=== PATIENT | female | born 1955 | race Caucasian/White ===

== ENCOUNTER 2022-08-18 16:13 | Outpatient (REF) | payer MEDICARE, OTHER, SELFPAY ==
[2022-08-18 16:37] LABS: ALT 70 U/L (14-59); Anion Gap 9.2 mmol/L (3-11); BUN 27 mg/dL (7-18); CO2 31.8 mmol/L (21.0-32.0); CREATININE 0.9 mg/dL (0.55-1.02); Calcium 10.6 mg/dL (8.5-10.1); Calculated LDL 91 mg/dL (<100); Chloride 103 mmol/L (98-107); Cholesterol 204 mg/dL (<200); Estimated GFR 69.64 (mL/min/1.73m2); Glucose 105 mg/dL (74-106); HDL Cholesterol 49 mg/dL (40-60); Potassium 4.1 mmol/L (3.5-5.1); Sodium 144 mmol/L (136-145); Triglyceride 323 mg/dL (<150)
== END 2022-08-18 16:14 | disposition home or self-care (01) ==
LOC: NCHCN 16:13
PROVIDERS: PCP Family Medicine; Visit Provider Family Medicine
DX: I10 Essential (primary) hypertension (principal); E66.8 Other obesity; E78.00 Pure hypercholesterolemia, unspecified; R79.89 Other specified abnormal findings of blood chemistry
CPT/HCPCS: 80048; 80061; 83036; 84460

== ENCOUNTER 2024-04-01 16:21 | Outpatient (REF) | payer MEDICARE, OTHER, SELFPAY ==
--- OUTSIDE RECORDS SUMMARY | 2024-04-01 16:22 | XMS_ITS | Continuity of Care Document ---
Author Organization [facility] Ambulatory Clinics Address [address] [place] [address] Care Team Providers Care Portfolio Manager Name Role Phone TANESHA WINTERS MD Primary Care Physician Encounter [facility] NBR [id number] Date(s): 08/22/23 - 08/22/23 [facility] Ambulatory Clinics [address] [place] [address] [place] Encounter Diagnosis Sacroiliac joint dysfunction(Discharge Diagnosis) - 08/22/23 Discharge Disposition: Home or Self Care Attending Physician: Sylvia Ayoub DO Referring Physician: TANESHA WINTERS MD Allergies, Adverse Reactions, Alerts No Known Allergies Functional Status 08/22/23 Family Member Travel History No recent t ravel Recent Travel History No recent travel Medications amLODIPine 10 mg oral tablet 90 tab, 0 Refill(s) Start Date: 10/13/22 Status: Ordered diclofenac 1% topical gel 100 g, APPLY 2 GRAMS TO AFFECTED AREA FOUR TIMES DAILY, 0 Refill(s) Start Date: 10/13/22 Status: Ordered DULoxetine 40 mg oral delayed release capsule 30 cap, 0 Refill(s) Start Date: 10/13/22 Status: Ordered gabapentin 300 mg oral capsule 270 EA, TAKE 1 CAPSULE BY MOUTH THREE TIMES DAILY, 0 Refill(s) Start Date: 10/13/22 Status: Ordered hydroCHLOROthiazide 25 mg oral tablet 90 tab, 0 Refill(s) Start Date: 10/13/22 Status: Ordered lidocaine 5% topical film 14 patches, 0 Refill(s) Start Date: 10/13/22 Status: Ordered meloxicam 15 mg oral tablet 90 tab, 0 Refill(s) Start Date: 10/13/22 Status: Ordered Metoprolol Succinate ER 25 mg oral tablet, extended release 90 tab, 0 Refill(s) Start Date: 10/13/22 Status: Ordered omeprazole 20 mg oral delayed release capsule 90 cap, 0 Refill(s) Start Date: 10/13/22 Status: Ordered simvastatin 40 mg oral tablet 90 tab, 0 Refill(s) Start Date: 10/13/22 Status: Ordered Problem List Condition Confirmation Course Effective Dates Status H ealth Status Informant Anxiety Confirmed Active Arthritis Confirmed Active HLD (hyperlipidemia) Confirmed Active HTN (hypertension) Confirmed Active Low back pain Confirmed Active Spondylolisthesis, lumbar region Confirmed Active Lumbosacral spondylosis with radiculopathy Confirmed Active Vital Signs Most recent to oldest [Reference Range]: 1 Temperature Temporal Artery [36-38 Deg C ] 37.1 Deg C (08/22/23 11:12 AM) Peripheral Pulse Rate [60-100 bpm] 57 bp m *LOW* (08/22/23 11:12 AM) Respiratory Rate [12-24 br/min] 18 br/mi n (08/22/23 11:12 AM) Blood Pressure [90-140/60-90 mmHg] 121/8 1mmHg (08/22/23 11:12 AM) Mean Arterial Pressure, Cuff [65-140 mmH g] 94 mmHg (08/22/23 11:12 AM) Social History Social History Type Response Tobacco Former tobacco user Tobacco Use:. Sex Patient Care team information Care Team Personnel Name: TANESHA WINTERS MD Position: No Access Member Role: Primary Care Physician Care Team Related Persons Name: JOANN HINDS Address: [address] [id number] [facility]
--- OUTSIDE RECORDS SUMMARY | 2024-04-01 16:22 | XMS_ITS | Continuity of Care Document ---
Author Organization [facility] Ambulatory Clinics Address [address] [place] [address] Care Team Providers Care Unstacker Name Role Phone SINGH BRUNSON, TANESHA Cordova Primary Care Physician Encounter [facility] NBR [id number] Date(s): 03/04/24 - 03/04/24 [facility] Ambulatory Clinics [address] [place] [address]- Encounter Diagnosis Facet arthropathy, lumbar(Discharge Diagnosis) - 03/04/24 Lumbar spondylosis(Discharge Diagnosis) - 03/04/24 Low back pain(Discharge Diagnosis) - 03/04/24 Spondylolisthesis of lumbar region(Discharge Diagnosis) - 03/04/24 Discharge Disposition: Home or Self Care Attending Physician: Sylvia Ayoub DO Allergies, Adverse Reactions, Alerts No Known Allergies Assessment and Plan Extracted from: Title:[facility] Office Visit Note - Pain Management Author:Sylvia Ayoub DO Date:03/04/24 Facet arthropathy, lumbar??M 47.816,??Lumbar spondylosis??M47.816 ?? Low back pain??M54.50 Ordered: XR Spine Lumbosacral 4+ Views, 03/04/24 12:04:00 EDT, Routine, Reason: low back pain, listhesis, evaluate for instability, flexion/extension, Transport Mode: Ambulatory, Spondylolisthesis of lumbar region Low back pain, ABN Status: Not Required ?? Spondylolisthesis of lumbar region??M43.16 Ordered: XR Spine Lumbosacral 4+ Views, 03/04/24 12:04:00 EDT, Routine, Reason: low back pain, listhesis, evaluate for instability, flexion/extension, Transport Mode: Ambulatory, Spondylolisthesis of lumbar region Low back pain, ABN Status: Not Required ? Dayan reports excellent relief of the right buttock and leg pain following a right sacroiliac joint injection performed??on 01/16/2024. ??She reports 80% relief.?? She describes some discomfort higher up in the low back??at this point in time.?? Facet loading is positive on exam.?? In 2022, she was experiencing axial left-sided low back pain and she responded well to??left diagnostic facet blocks and RFA. ??She was not experiencing any right-sided back pain at that time so the right side was not performed.?? Her current symptoms??in the lumbar spine are likely facet joint mediated.?? MRI of the lumbar spine from??September 2022??shows significant lower lumbar facet arthropathy. ?? We agreed to update the lumbar flexion/extension x-rays to rule out instability. If instability appreciated, would move forward with surgical opinion.??If no significant instability,??would??proceed with diagnostic right lumbar medial branch blocks to determine if she is a candidate for right lumbar radiofrequency ablation.?The right side is most bothersome right now so we agreed to move forward with diagnostic testing on the right side only for now.?? Once the right side is addressed, if she finds that the left-sided low back pain is progressing, can repeat the radiofrequency ablation??on the left side, which was performed about a year ago with great results. ??Would not need to repeat the diagnostic testing on the left side since she had excellent relief with a??prior RFA. ?? The flexion/extension x-rays were completed following the visit today and images were personally reviewed. ??X-rays demonstrate grade 1 spondylolisthesis of L5 on S1 as well as??L4 on L5??as seen in previous x-rays.?There is no obvious instability appreciated with flexion/extension views.? Order placed for Right L3, L4, and L5 diagnostic medial branch blocks. ? Medications amLODIPine 10 mg oral tablet 90 [...] recent to oldest [Reference Range]: 1 Temperature Oral [35.8-37.3 Deg C] 36.2 Deg C (03/04/24 11:38 AM) Peripheral Pulse Rate [60-100 bpm] 64 bp m (03/04/24 11:38 AM) Respiratory Rate [12-24 br/min] 18 br/mi n (03/04/24 11:38 AM) Blood Pressure [90-140/60-90 mmHg] 153/8 3mmHg *HI* (03/04/24 11:38 AM) Mean Arterial Pressure, Cuff [65-140 mmH g] 106 mmHg (03/04/24 11:38 AM) Social History Social History Type Response Tobacco Former tobacco user Tobacco Use:. 1 Sex Sex Representation Female (finding) 1quit 30 years ago Physician Outpatient Note * Sylvia Ayoub DO: PERFORM, MODIFY, MODIFY, MODIFY, MODIFY, MODIFY Event Display: Office Clinic Note Physician Authored Date: [id number] DAYAN HINDS :1955 Age:68 years Sex:Female Visit Date:03/04/2024 Primary Care Physician: TANESHA WINTERS MD Chief Complaint F/U on SI Joint injection Additional Information pt reports that she has had 80% improvement in her pain since having her injection. pt states my pain was 12+ before my injection History of Present Illness ?? Dayan is here for follow up to review her response to recent right SI joint injection??performed on 01/16/2024.?? Prior to the injection she was experiencing right buttock pain with radiation down the posterior right leg.?? She reports complete resolution of the leg pain following the injection.??She reports about 80% relief overall.?? She is still experiencing axial low back pain??at the levelof the??iliac crest or just slightly below the iliac crest based on area she points to on exam. ?? Pain is most bothersome with activity such as sweeping and vacuuming.?? Pain level is rated 6/10 today. ??Pain is more bothersome on the right side but she also reports some discomfort on the left side. ?? Reviewed??prior??interventions and procedures.?? She previously underwent left diagnostic facet blocks??and radiofrequency??ablation??in January 2023??with 80 to 85% relief of the left sided low back pain??at the 6-week follow-up post??RFA.?? At that time, she reported new right gluteal and leg pain, suspected to be SI joint mediated and she responded nicely to SI joint injections on the right side in April??2022 and most recently in December 2023.?? She never underwent??lumbar??facet blocks or RFA on the right side. ? Procedures: Left LMBB L3, L4, L5 - December 2022 and Left RFA L3, L4, L5 01/2023 - 80-85% relief reported at 6 week follow up visit Right SI joint injection April 2023 and December 2023 - 80% relief of right gluteal and leg pain Left SI joint injection August 2023 ?? Flex/ex xray September 2022 - negative for instability Review of Systems Constitutional:?No fevers/chills Gastrointestinal:?No bowel dysfunction Genitourinary:?No bladder dysfunction Musculoskeletal:??Positive for back pain Neurological: No new weakness, no new numbness/tingling Physical Exam Vitals & Measurements T:??36.2?C ??(Oral)?? HR:??64??(Peripheral)?? RR:??18?? BP:??153/83?? SpO2:??95%?? General: no acute distress HEENT: Facial movements symmetric Resp: Breathing comfortably, unlabored respirations Lumbar ROM: Flexion to 80??degrees, extension to??10 degrees.?? Pain worse with extension Facet loading positive right greater than left Neuro: Motor:Strength is 5 out of 5 lower extremities bilaterally Sensation:Intact to light touch lower extremities bilaterally Reflexes: 2+ bilateral patellar and right achilles, 1+ left??achilles.??Beck's negative b/l.No clonus. Gait: steady?? Assessment/Plan Facet arthropathy, lumbar??M47.816,??Lumbar spondylosis??M47.816 ?? Low back pain??M54.50 Ordered: XR Spine Lumbosacral 4+ Views, 03/04/24 12:04:00 EDT, Routine, Reason: low back pain, listhesis, evaluate for instability, flexion/extension, Transport Mode: Ambulatory, Spondylolisthesis of lumbar region Low back pain, ABN Status: Not Required ?? Spondylolisthesis of lumbar region??M43.16 Ordered: XR Spine Lumbosacral 4+ Views, 03/04/24 12:04:00 EDT, Routine, Reason: low back pain, listhesis, evaluate for instability, flexion/extension, Transport Mode: Ambulatory, Spondylolisthesis of lumbar region Low back pain, ABN Status: Not Required ? Dayan reports excellent relief of the right buttock and leg pain following a right sacroiliac joint injection performed??on 01/16/2024. ??She reports 80% relief.?? She describes some discomfort higher up in the low back??at this point in time.?? Facet loading is positive on exam.?? In 2022, she was experiencing axial left-sided low back pain and she responded well to??left diagnostic facet blocks and RFA. ??She was not experiencing any right-sided back pain at that time so the right side was not performed.?? Her current symptoms??in the lumbar spine are likely facet joint mediated.?? MRI of the lumbar spine from??September 2022??shows significant lower lumbar facet arthropathy. ?? We agreed to update the lumbar flexion/extension x-rays to rule out instability. If instability appreciated, would move forward with surgical opinion.??If no significant instability,??would??proceed with diagnostic right lumbar medial branch blocks to determine if she is a candidate for right lumbar radiofrequency ablation.?The right side is most bothersome right now so we agreed to move forward with diagnostic testing on the right side only for now.?? Once the right side is addressed, if she finds that the left-sided low back pain is progressing, can repeat the radiofrequency ablation??onthe left side, which was performed about a year ago with great results. ??Would not need to repeat the diagnostic testing on the left side since she had excellent relief with a??prior RFA. ?? The flexion/extension x-rays were completed following the visit today and images were personally reviewed. ??X-rays demonstrate grade 1 spondylolisthesis of L5 on S1 as well as??L4 on L5??as seen in previous x-rays.?There is no obvious instability appreciated with flexion/extension views.? Order placed for Right L3, L4, and L5 diagnostic medial branch blocks. Images X-rays completed on 03/04/2024 independently interpreted and agree with radiology report ? Greater than 40 minutes spent in this encounter including [id number] time as well as additional time spent on chart review, imaging review, documentation, orders/coordinating care. Problem List/Past Medical History Ongoing Anxiety Arthritis HLD (hyperlipidemia) HTN (hypertension) Low back pain Lumbosacral spondylosis with radiculopathy Spondylolisthesis, lumbar region Historical No qualifying data Medications amLODIPine 10 mg oral tablet diclofenac 1% topical gel DULoxetine 40 mg oral delayed release capsule gabapentin 300 mg oral capsule hydroCHLOROthiazide 25 mg oral tablet lidocaine 5% topical film meloxicam 15 mg oral tablet Metoprolol Succinate ER 25 mg oral tablet, extended release omeprazole 20 mg oral delayed release capsule simvastatin 40 mg oral tablet Allergies No Known Allergies No Known Medication Allergies Social History Electronic Cigarette/Vaping Electronic Cigarette Use: Unknown/not obtained. Tobacco Former tobacco user Tobacco Use:.- Comments: quit 30 years ago Electronically Signed on 03/04/2024 13:35 EDT Sylvia Ayoub DO Patient Care team information Care Team Personnel Name: SINGH BRUNSON, TANESHA Cordova Position: No Access Member Role: Primary Care Physician Care Team Related Persons Name: JOANN HINDS Insurance Providers Guarantor name: SHAMIKA Health Plan Information #: 1 Payer: [facility] Member Number: [id number] Policy Number: NA Health Plan Information #: 2 Payer: [employer] Member Number: [id number] Policy Number: NA
--- OUTSIDE RECORDS SUMMARY | 2024-04-01 16:22 | XMS_ITS | Continuity of Care Document ---
Author Organization [facility] Ambulatory Clinics Address [address] [place] [address] Care Team Providers Care Screen Writer Name Role Phone TANESHA WINTERS MD Primary Care Physician Encounter [facility] NBR [id number] Date(s): 12/10/23 - 12/10/23 [facility] Ambulatory Clinics [address] [place] [address] [place] Encounter Diagnosis Sacroiliac joint dysfunction of right side(Discharge Diagnosis) - 12/10/23 Discharge Disposition: Home Allergies, Adverse Reactions, Alerts No Known Allergies Assessment and Plan Future Appointments Medications amLODIPine 10 mg oral tablet 90 [...] Active Lumbosacral spondylosis with radiculopathy Confirmed Active Social History Social History Type Response Tobacco Former tobacco user Tobacco Use:. Sex Patient Care team information Care Team Personnel Name: TANESHA WINTERS MD Position: No Access Member Role: Primary Care Physician Care Team Related Persons Name: JOANN HINDS Address: [address] [id number] [facility]
--- OUTSIDE RECORDS SUMMARY | 2024-04-01 16:22 | XMS_ITS | Continuity of Care Document ---
Author Organization [facility] Ambulatory Clinics Address [address] [place] [address] Care Team Providers Care Asphalt Plant Operator Name Role Phone TANESHA WINTERS MD Primary Care Physician [phone] Encounter [facility] NBR [id number] Date(s): 10/17/22 - 10/17/22 [facility] Ambulatory Clinics [address] [place] [address] [place] Discharge Disposition: Home Allergies, Adverse Reactions, Alerts No Known Medication Allergies Assessment and Plan Future Appointments Medications [...]
--- OUTSIDE RECORDS SUMMARY | 2024-04-01 16:22 | XMS_ITS | Continuity of Care Document ---
Author Organization [facility] Address [address] [place] [address] Care Team Providers Care Mink Farmer Name Role Phone SINGH BRUNSON, TANESHA Cordova Primary Care Physician Encounter [facility] NBR [id number] Date(s): 03/04/24 - 03/04/24 [facility] [address] [place] [address] [place] Encounter Diagnosis Spondylolisthesis, lumbosacral region(Final) - Spinal stenosis, lumbosacral region(Final) - Unspecified inflammatory spondylopathy, lumbar region(Final) - Discharge Disposition: Home or Self Care Attending Physician: Sylvia Ayoub DO Admitting Physician: Sylvia Ayoub DO Referring Physician: Sylvia Ayoub DO Allergies, Adverse Reactions, Alerts No Known Allergies Medications amLODIPine 10 mg oral tablet 90 [...] Active Lumbosacral spondylosis with radiculopathy Confirmed Active Results Radiology Reports * Exam Date Time Procedure Performing Provider Status 03/04/24 12:16 PM XR Spine Lumbosacral 4+ Views Lynette Huizar; Auth (Verified) Notes: (XR Spine Lumbosacral 4+ Views) Reason For Exam: low back pain, listhesis, evaluate for instability XR Spine Lumbosacral 4+ Views EXAM DESCRIPTION: XR Spine Lumbosacral 4+ Views 03/04/2024 INDICATION: LOW BACK PAIN, LISTHESIS, EVALUATE FOR INSTABILITY TECHNIQUE: AP and lateral views of the lumbar spine including lateral views with voluntary flexion/extension, four views COMPARISON: 10/13/2022 IMPRESSION: No acute fracture Grade 1 spondylolisthesis at L5-S1 with grade 1 anterolisthesis at L4-5 as described previously. Lumbar lordosis is otherwise satisfactory. Mild levoscoliosis which may be positional Views with voluntary flexion/extension demonstrate no evidence of significant instability. Intervertebral disc space narrowing at L4-5 and L5-S1 suggesting degenerative disc disease as described previously. Facet arthritic changes in the lower lumbar region. SI joints appear symmetric Regional vascular calcification. JOB #: [id number] Final Signed by: Yvan Dawson MD Signed (Electronic Signature): 03/04/2024 1:18 pm Social History Social History Type Response Tobacco Former tobacco user Tobacco Use:. 1 Sex Sex Representation Female (finding) 1quit 30 years ago Patient Care team information Care Team Personnel Name: TANESHA WINTERS MD Position: No Access Member Role: Primary Care Physician Care Team Related Persons Name: JOANN HINDS Insurance Providers Guarantor name: SHAMIKA Health Plan Information #: 1 Payer: [facility] Member Number: [id number] Policy Number: NA Health Plan Information #: 2 Payer: [employer] Member Number: [id number] Policy Number: NA
--- OUTSIDE RECORDS SUMMARY | 2024-04-01 16:22 | XMS_ITS | Continuity of Care Document ---
Author Organization [facility] Address [address] [place] [address] Care Team Providers Care Tele Grout Sewer Line Repairer Name Role Phone TANESHA WINTERS MD Primary Care Physician [phone] Encounter [facility] NBR [id number] Date(s): 01/16/24 - 01/16/[address] [address]- [place] Encounter Diagnosis Sacroiliac joint dysfunction of right side(Discharge Diagnosis) - 01/16/24 Discharge Disposition: Home or Self Care Attending [...] Temperature Temporal Artery [36-38 Deg C ] 36.2 Deg C (01/16/24 1:08 PM) Peripheral Pulse Rate [60-100 bpm] 53 bp m *LOW* (01/16/24 1:08 PM) Respiratory Rate [12-24 br/min] 18 br/mi n (01/16/24 1:08 PM) Blood Pressure [90-140/60-90 mmHg] 122/6 9mmHg (01/16/24 1:08 PM) Mean Arterial Pressure, Cuff [65-140 mmH g] 87 mmHg (01/16/24 1:08 PM) Weight 79.38 kg (01/16/24 1:08 PM) Weight Measured (lbs) 175.003 lb (01/16/24 1:08 PM) Weight Dosing 79.380 kg (01/16/24 1:08 PM) [place] Body Weight Calculated 47.8 kg (01/16/24 1:08 PM) Height 154.94 cm (01/16/24 1:08 PM) Height/Length Measured (inches) 61 inch (01/16/24 1:08 PM) BSA Measured 1.85 m2 (01/16/24 1:08 PM) Body Mass Index 33.07 kg/m2 (01/16/24 1:08 PM) Social History Social History Type Response Tobacco Former tobacco user Tobacco Use:. 1 Sex 1quit 30 years ago Patient Care team information Care Team Personnel Name: TANESHA WINTERS MD Position: No Access Member Role: Primary Care Physician Care Team Related Persons Name: JOANN HINDS Address: [address] [phone] [facility]
--- OUTSIDE RECORDS SUMMARY | 2024-04-01 16:22 | XMS_ITS | Continuity of Care Document ---
Author Organization [facility] Ambulatory Clinics Address [address] [place] [address] Care Team Providers Care Film Booker Name Role Phone TANESHA WINTERS MD Primary Care Physician Encounter [facility] FIN NBR [id number] Date(s): 03/22/23 - 03/22/23 [facility] Ambulatory Clinics [address] [place] [address] [place] Encounter Diagnosis Lumbar spondylosis(Discharge Diagnosis) - 03/22/23 Facet arthropathy, lumbar(Discharge Diagnosis) - 03/22/23 Sacroiliac joint dysfunction of right side(Discharge Diagnosis) - 03/22/23 Chronic low back pain(Discharge Diagnosis) - 03/22/23 Other chronic pain(Discharge Diagnosis) - 03/22/23 Discharge Disposition: Home or Self Care Attending [...] Temperature Temporal Artery [36-38 Deg C ] 36.4 Deg C (03/22/23 4:37 PM) Peripheral Pulse Rate [60-100 bpm] 67 bp m (03/22/23 4:37 PM) Blood Pressure [90-140/60-90 mmHg] 122/7 0mmHg (03/22/23 4:37 PM) Social History Social History Type Response Tobacco Former tobacco user Tobacco Use:. Sex Physician Outpatient Note * Sylvia Ayoub, DO: PERFORM, MODIFY Event Display: Office Clinic Note Physician Authored Date: [id number] DAYAN HINDS :1955 Age:67 years Sex:Female Visit Date:03/22/2023 Primary Care Physician: TANESHA WINTERS MD Chief Complaint Lower back- Injection follow up Additional Information Injecton is helping her back. Now having more sciatica pain on the right side. 85% relief from the injection. No medication changes. History of Present Illness ?? 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 she has a history of intermittent sciatica on the left side and she has not noticed any left legpain recently however, she has a new problem of right pain, denies new injury she has been much more active since the RFA but does not recall a specific event/injury started to notice right sided pain a few weeks ago does not appear to be triggered by any particular activity radiates from right buttock to posterior thigh and calf no pain to foot no numbness/tingling Review of Systems Constitutional:?No fevers/chills Gastrointestinal:?No bowel dysfunction Genitourinary:?No bladder dysfunction Musculoskeletal:??Positive for right buttock and leg pain Neurological: No new weakness, no new numbness/tingling Physical Exam Vitals & Measurements T:??36.4?C ??(Temporal Artery)?? HR:??67??(Peripheral)?? BP:??122/70?? SpO2:??97%?? Gen: no acute distress HEENT: Facial movements symmetric Resp: Breathing comfortably, unlabored respirations Lumbar ROM: Fairly normal range of motion of the lumbar spine in flexion and extension without significant discomfort Neuro: Motor:Strength is 5 out of 5 in the lower extremities bilaterally HF, KE, AD, EHL, PF Sensation:Intact to light touch in the lower extremities bilaterally Reflexes: 2+ bilateral patellar, achilles.?? Provocative tests: back pain with SLR on right Hips: no groin pain with internal or external rotation SI joints: Durga's finger test positive on right, DEEDEE maneuver and Gaenslen's maneuver positive,thigh thrust and SI compression are positive on right Gait: steady, clears toes Assessment/Plan Chronic low back pain??M54.50 ?? Facet arthropathy, lumbar??M47.816,??Lumbar spondylosis??M47.816 ?? Other chronic pain??G89.29 ?? Sacroiliac joint dysfunction of right side??M53.3 Ordered: Surgical Procedure Booking Request LTTL, 03/22/23 15:38:00 EDT, sacroiliac joint dysfunct, Sacroiliac joint dysfunction of right side, Outpatient, right SI joint injection, Primary Procedure, 45, Special equipment needed (include C-Arm requests)?, Local, 34, Sylvia Ayoub, DO, Right Sacroi... ? Dayan reports an excellent response to a recent left??lumbar radiofrequency ablation.?? There is significant improvement in function. 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 She reports 80-85% relief overall. ??She may experience a mild residual soreness in the low back??at times but overall her symptoms are very manageable and tolerable at this time. She is happy with the relief from the lumbar RFA. ?? She reports a new area of pain which started few weeks ago and is present on the right side. ??Previously she was experiencing some left sided leg pain??but this has not occurred recently. ??The new right-sided symptoms radiate from the right??gluteal region at the level of the SI joint and radiates??to the posterior thigh.?? MRI reveals some very mild foraminal narrowing at L5- S1??which could potentially explain her symptoms although the narrowing does appear slightly worse on the left side compared to the right. ??On exam today, there are several findings suggestive of SI joint mediated pain. ??We reviewed the option to trial a right SI joint injection. ??Risks and??potential benefits were reviewed and she would like to proceed.?? If an SI joint injection is ineffective, we could consider a right L5 transforaminal LUPE. ?? She will return for a right SI joint injection. ? Images MRI lumbar spine reviewed ? 30+ minutes spent in this encounter including [id number] time, chart review, imaging review, documentation and coordination of care. Problem List/Past Medical History Ongoing Anxiety [...] Unknown/not obtained. Tobacco Former tobacco user Tobacco Use:. Electronically Signed on 03/22/23 05:32 PM Sylvia Ayoub, Patient Care team information Care Team Personnel Name: SINGH BRUNSON, TANESHA Cordova Position: No Access Member Role: Primary Care Physician Care Team Related Persons Name: JOANN HINDS Address: [address] [id number] [facility]
--- OUTSIDE RECORDS SUMMARY | 2024-04-01 16:22 | XMS_ITS | Continuity of Care Document ---
Author Organization [facility] Ambulatory Clinics Address [address] [place] [address] Care Team Providers Care Facilities Locator Name Role Phone TANESHA WINTERS MD Primary Care Physician [phone] Encounter [facility] FIN NBR [id number] Date(s): 06/22/23 - 06/22/23 [facility] Ambulatory Clinics [address] [place] [address] [place] Encounter Diagnosis Sacroiliac joint dysfunction(Discharge Diagnosis) - 06/22/23 Discharge Disposition: Home or Self Care Attending [...] Temperature Temporal Artery [36-38 Deg C ] 35.9 Deg C *LOW* (06/22/23 2:54 PM) Peripheral Pulse Rate [60-100 bpm] 57 bp m *LOW* (06/22/23 2:54 PM) Blood Pressure [90-140/60-90 mmHg] 151/8 9mmHg *HI* (06/22/23 2:54 PM) Mean Arterial Pressure, Cuff [70-110 mmH g] 110 mmHg (06/22/23 2:54 PM) Social History Social History Type Response Tobacco Former tobacco user Tobacco Use:. Sex Physician Outpatient Note * Sylvia Ayoub, DO: PERFORM, MODIFY, MODIFY, MODIFY, MODIFY Event Display: Office Clinic Note Physician Authored Date: [id number] MAGDA HINDS :1955 Age:67 years Sex:Female Visit Date:06/22/2023 Primary Care Physician: TANESHA WINTERS MD Chief Complaint Injection follow up Additional Information Starting feeling relief right away. 90% relief from the injection. No medication changes. History of Present Illness ?? Magda is here for follow-up of her right SI joint injection which was performed on 05/16/2023.?? She had??significant??improvement, at least 90% relief. ??She reports increased??mobility. 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 She is able to walkfor longer distances without pain.?? She states that around Joseph time, she started to notice similar symptoms on the left side.?? The pain is slightly better over the past 2 days??but the symptoms overall feel very similar to what she was experiencing on the right side prior to the SI joint injection.?? The pain is mainly in the left gluteal region with radiation to the posterior thigh. ??Nodistal leg pain. ??No associated numbness or tingling.?? She occasionally uses Tylenol. Review of Systems Constitutional:?No fevers/chills Musculoskeletal:??Positive for back pain/left gluteal pain Neurological: No new weakness, no new numbness/tingling Physical Exam Vitals & Measurements T:??35.9?C ??(Temporal Artery)?? HR:??57??(Peripheral)?? BP:??151/89?? SpO2:??97%?? General: no acute distress HEENT: Facial movements symmetric Resp: Breathing comfortably, unlabored respirations Neuro: Motor:Strength is 5 out of 5 in the lower extremities bilaterally Sensation:Intact to light touch in the lower extremities bilaterally SI joints:??+ DEEDEE, Gaenslen's maneuver, SI joint compression and thigh thrust on left side Gait: normal Assessment/Plan Sacroiliac joint dysfunction??M53.3 ?? She reports excellent relief with recent right SI joint injection performed on 05/16/23. She is experiencing similar pain on the left side.?? Exam today reveals several findings suggestive of SI joint mediated??pain on the left side.?? She would like to trial a left SI joint injection. Order has been entered, pending insurance authorization. ?? She will follow up for left SI joint injection. ? 20 minutes spent in this encounter including face to face time, chart review, documentation and coordination of care. Problem [...] tobacco user Tobacco Use:. Electronically Signed on 06/22/23 04:06 PM Sylvia Ayoub DO Patient Care team information Care Team Personnel Name: SINGH BRUNSON, TANESHA Cordova Position: No Access Member Role: Primary Care Physician Care Team Related Persons Name: JOANN HINDS Address: [address] [id number] [facility]
--- OUTSIDE RECORDS SUMMARY | 2024-04-01 16:22 | XMS_ITS | Continuity of Care Document ---
Author Organization [facility] Ambulatory Clinics Address [address] [place] [address] Care Team Providers Care Manager Strategy Name Role Phone TANESHA WINTERS MD Primary Care Physician Encounter [facility] FIN NBR [id number] Date(s): 11/22/22 - 11/22/22 [facility] Ambulatory Clinics [address] [place] [address] us Discharge Disposition: Home or Self Care Attending Physician: Sylvia Ayoub DO Allergies, Adverse Reactions, Alerts No Known Medication Allergies Medications amLODIPine 10 mg oral tablet [...] Note * Sylvia Ayoub, DO: PERFORM, MODIFY, MODIFY Event Display: Office Clinic Note Physician Authored Date: [id number] HINDSMAGDA :1955 Age:66 years Sex:Female Visit Date:11/22/2022 Primary Care Physician: TANESHA WINTERS MD PROCEDURE NOTE LEFT??DIAGNOSTIC LUMBAR MEDIAL BRANCH BLOCKS L3, L4, L5 Diagnosis: lumbar facet arthropathy, lumbar spondylosis ?? Chief complaint: low back pain ?? Updated H&P: No significant??change from prior office visit.?? Injection was initially ordered to be performed on both sides??and she was consented for bilateral injection today. ??However, priorto the timeout process, she stated that her symptoms are really most bothersome on the left side and her pain is minimal on the right side. ??She stated that she only wanted the left side addressed today.?? We made the change to the consent form that we would only be performing a left-sided procedure today, which both the patient and myself initialed. ?? The patient was interviewed and the medical record??was??reviewed. ??There were no medical, pharmacologic, radiographic or other structural contraindications to attempting fluoroscopically guided local anesthetic??lumbar medial branch blocks. ??Risks and??potential??side effects??were discussed. ??We also discussed the??potential benefit(s)??of the procedure, and their voiced concerns??were??addressed. ??After they were completely informed about the procedure, the printed consent form was signed. ?? The patient??was placed in the prone position on the fluoroscopy table. ?A standard time-out procedure was performed.??The skin entry points for approaching the anatomic target points of the segmental medial branches of??LEFT L3, L4, L5 medial branches were identified with fluoroscopy and marked. The skin at the target site area was??thoroughly prepared with??Chlorhexidine. ??The skin was then??draped. ??Next, a??25 gauge??3.5??spinal needle was placed under fluoroscopic guidance down on tothe target point??(the articular pillar)??for each respective segmental medial branch. Aspiration revealed no blood or clear fluid. After negative aspiration, 0.5??ml??of preservative-free 0.25% bupiv acaine??was injected??at each level.? The patient's??vital signs were stable throughout the procedure. There were no complications. ?? Patient was was instructed to keep careful note of how the usual pain was modified by these injections. ??Specifically, the patient was asked to keep a pain diary for the next 4 hours using a numericpain scale of 0-10.?? Post procedure instruction was given and having met discharge criteria, patient was discharged from the [facility]. ?? Based on the medial branches blocked today, if the patient has adequate relief and we are able to proceed to radiofrequency ablation, the treatment should result in the denervation of the??LEFT L4-5 and L5-S1 facet joints.??We would expect to denervate a total of??2 facets during the radiofrequencyablation. ?? Pre-procedure pain score: 7/10 Post -procedure pain score: 0/10 ? COMMENTS:??We will contact patient tomorrow to review post-procedure pain scores for hours 0-4. Electronically Signed on 11/22/22 06:04 PM Sylvia Ayoub, Patient Care team information Care Team Personnel Name: SINGH BRUNSON, TANESHA Cordova Position: No Access Member Role: Primary Care Physician
--- OUTSIDE RECORDS SUMMARY | 2024-04-01 16:22 | XMS_ITS | Continuity of Care Document ---
Author Organization [facility] Ambulatory Clinics Address [address] [place] [address] Care Team Providers Care In Process Inspector Name Role Phone TANESHA WINTERS MD Primary Care Physician Encounter [facility] FIN NBR [id number] Date(s): 01/31/23 - 01/31/23 [facility] Ambulatory Clinics [address] [place] [address] [place] Discharge Disposition: Home or Self Care [...] Most recent to oldest [Reference Range]: 1 2 3 Peripheral Pulse Rate [60-100 bpm] 56 bpm *LOW* (01/31/23 9:54 AM) 54 bpm *LOW* (01/31/23 9:45 AM) 56 bpm *LOW* (01/31/23 9:42 AM) Respiratory Rate [12-24 br/min] 20 br/min (01/31/23 8:30 AM) Blood Pressure [90-140/60-90 mmHg] 111/87mmHg (01/31/23 9:54 AM) 133/90mmHg (01/31/23 9:45 AM) 136/81mmHg (01/31/23 9:42 AM) Blood Pressure Location Left arm (01/31/23 9:42 AM) Left arm (01/31/23 9:39 AM) Blood Pressure Method Automatic (01/31/23 9:42 AM) Automatic (01/31/23 9:39 AM) Weight 81.65 kg (01/31/23 8:30 AM) Weight Measured (lbs) 180.007 lb (01/31/23 8:30 AM) Height 154.94 cm (01/31/23 8:30 AM) Height/Length Measured (inches) 61 inch (01/31/23 8:30 AM) BSA Measured 1.87 m2 (01/31/23 8:30 AM) Body Mass Index 34.01 kg/m2 (01/31/23 8:30 AM) Social History Social History Type Response Tobacco Former tobacco user Tobacco Use:. Sex Discharge instructions * Event Display: Discharge Instructions History and physical note * Event Display: History and Physical Update Patient Care team information Care Team Personnel Name: TANESHA WINTERS MD Position: No Access Member Role: Primary Care Physician Care Team Related Persons Name: JOANN HINDS Address: [address]
--- OUTSIDE RECORDS SUMMARY | 2024-04-01 16:22 | XMS_ITS | Continuity of Care Document ---
Author Organization [facility] Ambulatory Clinics Address [address] [place] [address] Care Team Providers Care Semiconductors Wafer Breaker Name Role Phone TANESHA WINTERS MD Primary Care Physician Encounter [facility] [facility] NBR [id number] Date(s): 10/13/22 - 10/13/22 [facility] Ambulatory Clinics [address] [place] [address] [place] Encounter Diagnosis Spondylolisthesis, lumbar region(Discharge Diagnosis) - 10/13/22 Low back pain(Discharge Diagnosis) - 10/13/22 Lumbosacral spondylosis with radiculopathy(Discharge Diagnosis) - 10/13/22 Discharge Disposition: Home or Self Care Attending Physician: TANESHA WINTERS MD Referring Physician: TANESHA WINTERS MD Allergies, Adverse Reactions, Alerts No Known Medication Allergies Functional Status 10/13/22 Other exposure to Infectious Disease Non e Medications amLODIPine 10 mg oral tablet 90 [...] recent to oldest [Reference Range]: 1 Temperature Tympanic [36.6-37.9 Deg C] 3 6.4 Deg C *LOW* (10/13/22 2:19 PM) Peripheral Pulse Rate [60-100 bpm] 75 bp m (10/13/22 2:19 PM) Respiratory Rate [12-24 br/min] 18 br/mi n (10/13/22 2:19 PM) Blood Pressure [90-140/60-90 mmHg] 142/7 6mmHg *HI* (10/13/22 2:19 PM) Weight 84.1 kg (10/13/22 2:19 PM) Weight Measured (lbs) 185.409 lb (10/13/22 2:19 PM) [place] Body Weight Calculated 47.8 kg (10/13/22 2:19 PM) Height 154.94 cm (10/13/22 2:19 PM) Height/Length Measured (inches) 61 inch (10/13/22 2:19 PM) BSA Measured 1.9 m2 (10/13/22 2:19 PM) Body Mass Index 35.03 kg/m2 (10/13/22 2:19 PM) Social History Social History Type Response Tobacco Former tobacco user Tobacco Use:. Sex Physician Outpatient Note * SUDHIR Pike: PERFORM Event Display: Office Clinic Note Physician Authored Date: [id number] MAGDA HINDS :1955 Age:66 years Sex:Female Visit Date:10/13/2022 Primary Care Physician: TANESHA WINTERS MD Chief Complaint Lower Back Pain Additional Information Reports pain located lower back and describes pain to radiate down left leg, patient describes a numbness sensation in left foot. completed PT at [facility] with Greyson Govea. History of Present Illness The patient presents to the spine center accompanied by her for evaluation of her low back and left leg pain.?? The patient reports that she has been struggling with this pain for over 2 years.?? She is experiencing pain in her low back??that is constant but??worse with bending, twisting??and walking. ??She is also experiencing intermittent but severe pain affecting the left leg. ??She reports that randomly she will have a severe pain that extends from the left low back into the left buttock and down the posterior lateral left leg and into her foot. ??She was reports that this happensshe has significant numbness of her left foot.?? She states that the pain is so severe and her leg feels so weak when this happens she cannot walk. ??This will last for up to 1 week??and be unbearable.?? The pain will then subside but her low back pain will persist. ??The patient has been trying tofigure out what??activities or movements cause this nerve pain down the left leg which she has not been able to figure out any aggravating activities.?? Her left leg has given out on her and she has f kacy??when the pain was severe.?? The patient has been prescribed a short course of oral steroids with no relief.?? She is taking gabapentin as well and thinks that may help a little bit with her pain.?? She has applied Voltaren gel with no relief. ??She does use lidocaine patches on her low back may provide some temporary relief.?? The patient also has an inversion table and that does seem to help a little bit. ??She has done physical therapy with no improvement. ??She has also had chiropractic treatments with some minimal improvement initially. ?? Review of Systems Relevant ROS discussed in HPI Physical Exam Vitals & Measurements T:??36.4?C ??(Tympanic)?? HR:??75??(Peripheral)?? RR:??18?? BP:??142/76?? SpO2:??97%?? HT:??154.94??cm?? WT:??84.1??kg?? BMI:??35.03?? BSA:??1.9?? GENERAL:?General Appearance:?pleasant, age appropriate in no apparent distress.?? MUSCULOSKELETAL:?Musculoskeletal:??Tenderness over the mid and lower lumbar spine.?? No bilateral SI joint or greater trochanteric bursa tenderness. ??Full range of motion of bilateral hips. NEUROLOGICAL:?Neurological:?? Negative straight leg bilaterally. ?Motor:?Strength 5/5 with bilateral hip flexion, knee flexion and extension, ankle dorsiflexion and plantar flexion.?Reflexes:?2+ and symmetric in biceps bilaterally.?? 1+ and symmetric in triceps and brachial radialis bilaterally. ??3+ and symmetric in knees bilaterally. ??Unable to elicit bilateral ankle jerks. ??Negative Pebbles's bilaterally. ? Tone: normal? Gait:??Slightly stiff and antalgic. Assessment/Plan 1.??Spondylolisthesis, lumbar region??M43.16 Ordered: XR Spine Lumbosacral 4+ Views, 10/13/22 15:00:00 EDT, Routine, Reason: low back pain, Transport Mode: Ambulatory, Spondylolisthesis, lumbar region, ABN Status: Not Required ?? 2.??Low back pain??M54.50 ?? 3.??Lumbosacral spondylosis with radiculopathy??M47.27 ?? The patient has been struggling with constant low back pain as well as intermittent but severe leftleg pain for the past 2 years. ??She has not had any significant improvement despite extensive conservative treatment including physical therapy, chiropractic treatment, home therapy??techniques including inversion table as well as many medications to include steroids.?? It is possible that the neuroforaminal narrowing at L5-S1 on the left could be contributing to her symptoms.?Fortunately, there is no severe nerve root compression and her neurological examination is unremarkable.?? In regards to her back pain, this is more complicated as??there are mild multilevel degenerative and spondylotic changes which all could be contributing to her pain. ??She does have an anterolisthesis of L4 over L5. ??I recommended obtaining flexion-extension lumbar spine x-rays as if there is abnormal movement of the spondylolisthesis this could??very likely be causing her pain. ??She is agreeable to obtaining??the x-rays.?? We discussed treatment options moving forward.?? The patient may benefit from various injections including??LUPE L5-S1 on the left??and facet blocks.?? The patient is hesitant about the possibility injections but is interested in surgical correction for her problem. ??It was explained to the patient that??injections would hopefully??relieve her pain??however they could also bediagnostic in helping us further sort out the source of her pain. ??Explained the patient that the only surgery to correct low back pain is lumbar fusion which is??a larger surgery so all conservative treatment options should be explored and tried??prior to??surgery for the back pain.?? The patientwould like to start with the flexion-extension x-rays and then??will decide if she is interested ininjections moving forward. Plan: Flexion and extension lumbar spine x-rays. Problem List/Past Medical History Ongoing Anxiety Arthritis [...] 40 mg oral tablet Allergies No Known Medication Allergies Social History Electronic Cigarette/Vaping Electronic Cigarette Use: Unknown/not obtained. Tobacco Former tobacco user Tobacco Use:. Diagnostic Results Diagnostic Study Interpretation: MRI of the lumbar spine was reviewed with the patient and her .?? There is an anterolisthesis of L4 over L5. ??There are mild degenerative and spondylotic changes in the lumbar spine most pronounced in the lower lumbar spine.?? In regards to the patient's??left leg pain,??at L5-S1 there is asmall diffuse disc bulge causing thecal sac indentation as well as??bilateral facet hypertrophy??causing??mild bilateral lateral recess stenosis??as well as??bilateral neuroforaminal narrowing that is slightly worse on the left. ??At L4-5??there is a??diffuse disc bulge??and??bilateral facet and ligamentum flavum hypertrophy causing??thecal sac indentation and mild bilateral lateral recess and neuroforaminal narrowing. Electronically Signed on 10/13/22 03:53 PM SUDHIR Pike Patient Care team information Care Team Personnel Name: SINGH BRUNSON, TANESHA Cordova Position: No Access Member Role: Primary Care Physician
--- OUTSIDE RECORDS SUMMARY | 2024-04-01 16:22 | XMS_ITS | Continuity of Care Document ---
Author Organization [facility] Address [address] [place] [address] Care Team Providers Care Cardiac Catheterization Technologist Name Role Phone TANESHA WINTERS MD Primary Care Physician Encounter [facility] NBR [id number] Date(s): 10/13/22 - 10/13/22 [facility] [address] [place] [address]- [place] Discharge Disposition: Home or Self Care Attending Physician: SUDHIR Pike Admitting Physician: SUDHIR Pike Referring Physician: SUDHIR Pike Allergies, Adverse Reactions, Alerts No Known Medication [...] Exam Date Time Procedure Performing Provider Status 10/13/22 3:10 PM XR Spine Lumbosacral 4+ Views White, R onda E; Auth (Verified) Notes: (XR Spine Lumbosacral 4+ Views) Reason For Exam: low back pain XR Spine Lumbosacral 4+ Views EXAM DESCRIPTION: XR Spine Lumbosacral 4+ Views 10/13/2022 INDICATION: LOW BACK PAIN TECHNIQUE: AP and lateral views of the lumbar spine including lateral views with voluntary flexion/extension, four views COMPARISON: None IMPRESSION: No acute fracture. Grade 1 spondylolisthesis at L5-S1 with grade 1 anterolisthesis at L4-5. Lumbar lordosis is otherwise satisfactory with no scoliosis. Mild intervertebral disc space narrowing at L4-5 and L5-S1 suggesting degenerative disc disease. Remaining intervertebral disc spaces are well maintained throughout the lumbar region Views with voluntary flexion/extension demonstrate no evidence of significant instability. SI joints appear symmetric Regional vascular calcification. JOB #: [id number] Final Signed by: Yvan Dawson MD Signed (Electronic Signature): 10/13/2022 4:27 pm Social History Social History Type Response Tobacco Former tobacco user Tobacco Use:. Sex XR Spine Lumbar and Sacrum GE 4 Views * Yvan Dawson MD: VERIFY, VERIFY Event Display: Report EXAM DESCRIPTION: XR Spine Lumbosacral 4+ Views 10/13/2022 INDICATION: LOW BACK PAIN TECHNIQUE: AP and lateral views of the lumbar spine including lateral views with voluntary flexion/extension, four views COMPARISON: None IMPRESSION: No acute fracture. Grade 1 spondylolisthesis at L5-S1 with grade 1 anterolisthesis at L4-5. Lumbar lordosis is otherwise satisfactory with no scoliosis. Mild intervertebral disc space narrowing at L4-5 and L5-S1 suggesting degenerative disc disease. Remaining intervertebral disc spaces are well maintained throughout the lumbar region Views with voluntary flexion/extension demonstrate no evidence of significant instability. SI joints appear symmetric Regional vascular calcification. JOB #: [id number] Final Signed by: Yvan Dawson MD Signed (Electronic Signature): 10/13/2022 4:27 pm Patient Care team information Care Team Personnel Name: TANESHA WINTERS MD Position: No Access Member Role: Primary Care Physician
--- OUTSIDE RECORDS SUMMARY | 2024-04-01 16:23 | XMS_ITS | Continuity of Care Document ---
Author Organization [facility] Ambulatory Clinics Address [address] [place] [address] Care Team Providers Care Speech Language Pathologist Assistant Name Role Phone TANESHA WINTERS MD Primary Care Physician [phone] Encounter [facility] NBR [id number] Date(s): 01/03/23 - 01/03/23 [facility] Ambulatory Clinics [address] [place] [address] [place] Discharge Disposition: Home or Self Care [...] to oldest [Reference Range]: 1 Temperature Temporal [36.3-37.8 Deg C] 3 6.2 Deg C *LOW* (01/03/23 11:06 AM) Peripheral Pulse Rate [60-100 bpm] 52 bp m *LOW* (01/03/23 11:06 AM) Respiratory Rate [12-24 br/min] 20 br/mi n (01/03/23 11:06 AM) Blood Pressure [90-140/60-90 mmHg] 112/6 0mmHg (01/03/23 11:06 AM) Social History Social History Type Response Tobacco Former tobacco user Tobacco Use:. Sex Discharge instructions * Event Display: Discharge Instructions History and physical note * Event Display: History and Physical Update Patient Care team information Care Team Personnel Name: TANESHA WINTERS MD Position: No Access Member Role: Primary Care Physician
--- OUTSIDE RECORDS SUMMARY | 2024-04-01 16:23 | XMS_ITS | Continuity of Care Document ---
Author Organization [facility] Ambulatory Clinics Address [address] [place] [address] Care Team Providers Care Manager Fraud Name Role Phone TANESHA WINTERS MD Primary Care Physician [phone] Encounter [facility] NBR [id number] Date(s): 10/03/22 - 10/03/22 [facility] Ambulatory Clinics [address] [place] [address]- [place] Patient Care team information Care Team Personnel Name: TANESHA WINTERS MD Position: No Access Member Role: Primary Care Physician
--- OUTSIDE RECORDS SUMMARY | 2024-04-01 16:23 | XMS_ITS | Continuity of Care Document ---
Author Organization [facility] Ambulatory Clinics Address [address] [place] [address] Care Team Providers Care Director Of Sustainability Name Role Phone TANESHA WINTERS MD Primary Care Physician Encounter [facility] NBR [id number] Date(s): 11/08/22 - 11/08/22 [facility] Ambulatory Clinics [address] [place] [address]- [place] Encounter Diagnosis Facet arthropathy, lumbar(Discharge Diagnosis) - 11/08/22 Lumbar spondylosis(Discharge Diagnosis) - 11/08/22 Lumbar radicular pain(Discharge Diagnosis) - 11/08/22 Lumbar foraminal stenosis(Discharge Diagnosis) - 11/08/22 Spondylosis without myelopathy or radiculopathy, lumbar region(Final) - Spinal stenosis, lumbar region without neurogenic claudication(Final) - Radiculopathy, lumbar region(Final) - Discharge Disposition: Home or Self Care Attending Physician: Sylvia Ayoub DO Allergies, Adverse Reactions, Alerts No Known Medication Allergies Functional Status 11/08/22 Other exposure to Infectious Disease Non e [...] Temperature Temporal Artery [36-38 Deg C ] 36.3 Deg C (11/08/22 2:42 PM) Peripheral Pulse Rate [60-100 bpm] 58 bp m *LOW* (11/08/22 2:42 PM) Blood Pressure [90-140/60-90 mmHg] 150/8 0mmHg *HI* (11/08/22 2:42 PM) Weight 83 kg (11/08/22 2:42 PM) Weight Measured (lbs) 182.983 lb (11/08/22 2:42 PM) [place] Body Weight Calculated 47.8 kg (11/08/22 2:42 PM) Height 154.94 cm (11/08/22 2:42 PM) Height/Length Measured (inches) 61 inch (11/08/22 2:42 PM) BSA Measured 1.89 m2 (11/08/22 2:42 PM) Body Mass Index 34.57 kg/m2 (11/08/22 2:42 PM) Social History Social History Type Response Tobacco Former tobacco user Tobacco Use:. Sex Physician Outpatient Note * Sylvia Ayoub DO: PERFORM, MODIFY, MODIFY Event Display: Office Clinic Note Physician Authored Date: [id number] DAYAN HIDNS :1955 Age:66 years Sex:Female Visit Date:11/08/2022 Primary Care Physician: TANESHA WINTERS MD Chief Complaint Lower back Reason for Consultation low back pain, intermittent left leg pain History of Present Illness ?? She is accompanied by her today Pain has been ongoing for about 2 years Low back pain 7/10 burning aching pain can intermittently radiate down left leg intermittent numbness bottom of left foot it has been 2 weeks since she noticed the leg symptoms ?? [facility] ?? 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 Review of Systems Patient denies new numbness, weakness, bladder dysfunction, bowel dysfunction, falls, gait/balance impairment Physical Exam Vitals & Measurements T:??36.3?C ??(Temporal Artery)?? HR:??58??(Peripheral)?? BP:??150/80?? SpO2:??94%?? HT:??154.94??cm?? WT:??83??kg?? BMI:??34.57?? BSA:??1.89?? General: comfortable at rest HEENT: Facial movements symmetric Resp: Breathing comfortably, unlabored respirations Lumbar ROM:??Limited flexion??to about 45 degrees, extension to about 5 degrees with endrange discomfort. ??More discomfort with??extension. No tenderness to palpation of the paraspinal muscles Facet loading positive bilaterally Neuro Motor:Strength is 5 out of 5 in the lower extremities bilaterally including HF, KE, AD, EHL, PF Sensation:Intact to light touch in the lower extremities bilaterally Reflexes: 1+ bilateral patellar, achilles.??No clonus. Provocative tests: Straight leg raise results in back pain,??does not reproduce leg pain Hips: No groin pain with internal or external rotation SI joints: DEEDEE equivocal on the left, negative on the right Gait:??Steady, clears toes Assessment/Plan Facet arthropathy, lumbar??M47.816,??Lumbar spondylosis??M47.816 Ordered: Surgical Procedure Booking Request [facility], 11/08/22 14:59:00 EDT, lumbar facet arthropathy, Facet arthropathy, lumbar, Outpatient, lumbar MBBs, Primary Procedure, 34, Special equipment needed (include C-Arm requests)?, Local, 34, Sylvia Ayoub, DO, Bilateral diagnostic lumbar medial branch b... ?? Lumbar foraminal stenosis??M48.061 ?? Lumbar radicular pain??M54.16 ?? Dayan presents today for evaluation of back pain with intermittent left leg pain.?? Symptoms havebeen ongoing for about 2 years. ??The back pain is daily whereas the leg symptoms occur during flareups. ??She has not experienced the leg symptoms in 2 weeks.?? MRI of the lumbar spine??from??09/25/2022 reviewed. ??There are degenerative disc change??and multilevel facet arthropathy most significant at L4-5 and L5-S1 where there are mild facet joint effusions.?? These findings are likely contributing to the axial back pain. ??In terms of the intermittent leg symptoms, there is??foraminal narrowing on the left at L5-S1, which could explain the leg discomfort. ?? We reviewed options from an interventional standpoint. ??Given that the??axial back pain is occurring daily, we discussed the option to trial a diagnostic lumbar medial branch blocks to determine if she is a candidate for??radiofrequency ablation.?? Risks and??potential benefits were reviewed and she would like to proceed. ??We discussed that if the leg symptoms return, we could trial a left L5 transforaminal epidural steroid injection, however, at this time she is not reporting leg discomfort and??her current symptoms appear to be more direct??directly related to the facet arthropathy. ?? She will return for lumbar diagnostic MBBs. Images MRI lumbar spine 09/25/2022 reviewed ? Problem List/Past Medical History Ongoing Anxiety Arthritis HLD (hyperlipidemia) HTN (hypertension) Low back pain Lumbosacral spondylosis with radiculopathy Spondylolisthesis, lumbar region Historical No qualifying data Medications Inpatient No active inpatient medications Home amLODIPine 10 mg oral tablet diclofenac 1% [...] tobacco user Tobacco Use:. Electronically Signed on 11/08/22 05:05 PM Sylvia Ayoub DO Patient Care team information Care Team Personnel Name: SINGH BRUNSON, TANESHA Cordova Position: No Access Member Role: Primary Care Physician
--- OUTSIDE RECORDS SUMMARY | 2024-04-01 16:23 | XMS_ITS | Continuity of Care Document ---
Author Organization [facility] Ambulatory [facility] Address [address] [place] [address] Care Team Providers Care Powered Bridge Specialist Name Role Phone TANESHA WINTERS MD Primary Care Physician Encounter [facility] NBR [id number] Date(s): 05/16/23 - 05/16/23 [facility] Amb[facility] [address] [place] [address] [place] Encounter Diagnosis Sacroiliac joint dysfunction(Discharge Diagnosis) - 05/16/23 Discharge Disposition: Home or Self Care Attending [...] to oldest [Reference Range]: 1 Temperature Tympanic [36.6-38.1 Deg C] 3 5.9 Deg C *LOW* (05/16/23 9:25 AM) Peripheral Pulse Rate [60-100 bpm] 71 bp m (05/16/23 9:25 AM) Respiratory Rate [12-24 br/min] 16 br/mi n (05/16/23 9:25 AM) Blood Pressure [90-140/60-90 mmHg] 142/8 1mmHg *HI* (05/16/23 9:25 AM) Mean Arterial Pressure, Cuff [70-110 mmH g] 101 mmHg (05/16/23 9:25 AM) Weight 81.3 kg (05/16/23 9:25 AM) Weight Measured (lbs) 179.236 lb (05/16/23 9:25 AM) Weight Dosing 81.300 kg (05/16/23 9:25 AM) Height 154.94 cm (05/16/23 9:25 AM) Height/Length Measured (inches) 61 inch (05/16/23 9:25 AM) BSA Measured 1.87 m2 (05/16/23 9:25 AM) Body Mass Index 33.87 kg/m2 (05/16/23 9:25 AM) Social History Social History Type Response Tobacco Former tobacco user Tobacco Use:. Sex Patient Care team information Care Team Personnel Name: TANESHA WINTERS MD Position: No Access Member Role: Primary Care Physician Care Team Related Persons Name: JOANN HINDS Address: Home [address] [phone] [facility]
[2024-04-01 21:28] LABS: Anion Gap 9.3 mmol/L (3-11); BUN 23 mg/dL (7-18); CO2 29.7 mmol/L (21.0-32.0); CREATININE 0.8 mg/dL (0.55-1.02); Calcium 10.4 mg/dL (8.5-10.1); Chloride 106 mmol/L (98-107); Estimated GFR 79.22 (mL/min/1.73m2); Glucose 106 mg/dL (74-106); Potassium 3.9 mmol/L (3.5-5.1); Sodium 145 mmol/L (136-145)
== END 2024-04-01 16:22 | disposition home or self-care (01) ==
LOC: NCHCN 16:21
PROVIDERS: PCP Family Medicine; Visit Provider Family Medicine
DX: I10 Essential (primary) hypertension (principal)
CPT/HCPCS: 80048

== ENCOUNTER 2025-04-14 21:45 | Outpatient (REF) | payer MEDICARE, OTHER, SELFPAY ==
[2025-04-14 21:53] LABS: Hemoglobin A1C 5.4 % (<5.7)
[2025-04-14 21:54] LABS: ALT 44 U/L (14-59); AST 27 U/L (15-37); Albumin 4.0 g/dL (3.4-5.0); Alkaline Phosphatase 81 U/L (46-116); Anion Gap 7.4 mmol/L (3-11); BUN 33 mg/dL (7-18); Bilirubin, Total 0.3 mg/dL (0.2-1.0); CO2 30.6 mmol/L (21.0-32.0); Calcium 9.9 mg/dL (8.5-10.1); Calculated LDL 117 mg/dL (<100); Chloride 102 mmol/L (98-107); Cholesterol 203 mg/dL (<200); Estimated GFR 78.72 (mL/min/1.73m2); Glucose 103 mg/dL (74-106); HDL Cholesterol 52 mg/dL (>or=50); Potassium 3.7 mmol/L (3.5-5.1); Sodium 140 mmol/L (136-145); Total Protein 7.4 g/dL (6.4-8.2); Triglyceride 173 mg/dL (<150)
== END 2025-04-14 21:46 | disposition home or self-care (01) ==
LOC: NCHCN 21:45
PROVIDERS: PCP Family Medicine; Visit Provider Family Medicine
DX: E78.5 Hyperlipidemia, unspecified (principal); R73.03 Prediabetes; I10 Essential (primary) hypertension
CPT/HCPCS: 80053; 80061; 83036